=== PATIENT | male | born 1945 | race Two or more races ===

== ENCOUNTER 2025-09-09 15:51 | Emergency (ER) | payer OTHER ==
[~2025-09-09] VITALS: Ht 175.3 cm; Wt 95.4 kg
--- NOTE | 2025-09-09 16:22 | ED.PDOC ---
HPI Comments HPI: Eduin 79 y.o male presents to the ED via EMS for a chief complaint of generalized weakness x 3 days. Patient was seen at a [facility] a couple days ago for flu like symptoms such as a cough, was given antibiotics and discharged. Patient had a f/u appointment with PCP today, had a 12 lead reading AFIB with BP in the 90's systolic. Clinic gave 1 liter IV fluids which brought BP up to 120's systolic per EMS. Patient felt lethargic and lightheaded when getting himself up and going inside the clinic today. He states inability to do anything as it increases weakness. He denies hx of AFIB Initial Vitals BP: HR: RR: O2 Sat: Temp: Past Medical history: HTN, HLD Past Surgical history: BL knee replacement Medications: Hydrochlorothiazide Social History: Denies smoking, ETOH, and drug use. Allergies: Lisinopril `` HPI: Poor Historian. bugay: Weakness, slow AFib, 2/4 bilateral pitting edema. REVIEW OF SYSTEMS: CONSTITUTIONAL: Denies acute: fever, diaphoresis, chills, HEAD: Denies acute: headache, photophobia Eyes: Denies acute: Double vision, vision loss, eye pain, eye discharge. EARS: Denies acute: tinnitus, hearing loss, ear discharge, ear pain, THROAT: Denies acute: sore throat, swelling, difficulty swallowing , pain with swallowing, change in voice. NECK: Denies acute: neck pain, neck swelling, stiff neck. HEART: Denies acute : chest pain, palpitations, LUNGS: Denies acute: wheezing, cough, hemoptysis ABDOMEN: Denies acute: abdominal pain, Nausea, Vomiting, diarrhea, melena , hematemesis, hematochezia SKIN: Denies acute: rash, redness, lesions, itchiness. EXTREMITIES: Denies acute: calf pain, numbness, tingling, weakness, denies pain in extremity. Denies acute: Low back pain. Neuro: Denies acute: focal neurological deficit, motor or sensory focal neurological deficit, tremors, seizure like activity, confusion, change in mental status, loss of bowel or bladder function, cauda equina like symptoms. : Denies acute: dysuria, hematuria, flank pain, increase in urinary frequency. PSYCH: Denies acute: hallucination, suicidal ideation, homicidal ideation. PHYSICAL EXAM: General: ---mild-----acute distress, awake and alert. Head: normocephalic, atraumatic. No raccoon's eyes, no powell sign. Neck: supple, trachea is midline, no swelling. Throat: Normal phonation. Eyes:, no erythema, no purulent discharge, no proptosis, no icterus. Heart: Irregular bradycardia in the setting of atrial fibrillation no signif icant murmur appreciated. Lungs: no apparent respiratory distress, Able to speak in full sentences. No wheezing, no rhonchi, no crackles. No stridors Clear to auscultation bilaterally. Abdomen: non tender to palpation, non distended, soft, no guarding, no rebound, + bowel sounds. Neuro: Awake, Alert, oriented to name, self, situation, follows commands GCS=15. Speech is normal. Skin: no petechia, no purpura, no cyanosis, slightly-pale, not jaundice. Lower extremities: --2/4 bilateral - Pitting edema no deformity, no focal swelling, no calf TTP. Makes eye contact. moves all four extremities. Face: no apparent facial droop. ED COURSE: DISCLAIMER: This medical document was created using an electronic medical record system with voice recognition software and computerized dictation system. Although this document has been carefully reviewed, there might still be some phonetic and typographical errors. Occasional wrong-word or "sound-alike" substitutions may have occurred due to the inherent limitations of voice recognition software. These areas are purely typographical due to imperfections of the software programs and do not reflect any compromise in the patient's medical care. Please read the chart carefully and recognize, using context, where these substitutions have occurred. 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 Was a procedure done?: No CP Differential Dx Differential Diagnosis: A-fib, Digoxin Toxicity, Electrolyte Disorder, PA Comment As far as generalized weakness Includes but not limited to thyroid disease, encephalopathy, electrolyte abnormality, sepsis, infection, intracranial pathology, drug adverse effects, arrhythmia, kidney insufficiency, ACS, CVA, malignancy, anemia X-Ray, Labs, Meds, VS Vital Signs Date Time Temp Pulse Resp B/P (MAP) Pulse Ox O2 Delivery O2 Flow Rate FiO2 09/10/25 00:57 98.0 43 14 109/79 (89) 95 98.0 09/10/25 00:00 45 17 132/69 (90) 95 09/09/25 22:00 46 17 135/65 (88) 98 09/09/25 20:59 129/79 09/09/25 20:00 43 09/09/25 19:58 46 17 95 Room Air* 0 21 09/09/25 19:30 98.0 46 17 122/71 (88) 95 98.0 09/09/25 17:29 42 17 98 Room Air* 0 21 09/09/25 17:29 97.9 42 17 122/69 (86) 98 97.9 09/09/25 16:07 46 09/09/25 16:05 97.9 38 16 130/75 98 97.9 Lab Test 09/09/25 23:25 09/09/25 20:45 09/09/25 19:01 09/09/25 17:56 Range/Units Urine Color Light-yellow Yellow Urine Clarity Clear Clear Urine pH 6.5 5.0-9.0 Urine Specific [place] 1.009 1.001-1.035 Urine Protein Negative Negative Urine Ketones Negative Negative Urine Blood Negative Negative /uL Urine Nitrite Negative Negative Urine Bilirubin Negative Negative Urine Urobilinogen Normal Negative mg/dL Urine Leukocyte Esterase Negative Negative /uL Urine RBC 1 0 - 3 /hpf Urine Microscopic WBC 1 0-3 /HPF Urine Squamous Epithelial Cells Few <5 /hpf Urine Bacteria None seen None Seen /hpf Urine Glucose Normal Normal mg/dL Troponin I High Sensitivity 70 *H 62 *H 64 *H </=54 ng/L White Blood Count 4.2 L 4.4-10.8 10^3/uL Red Blood Count 3.39 L 4.5-5.90 10^6/uL Hemoglobin 10.3 L 13.5-17.5 g/dL Hematocrit 30.8 L 41.0-53.0 % Mean Corpuscular Volume 90.8 80.0-100.0 fL Mean Corpuscular Hemoglobin 30.5 28.0-32.0 pg Mean Corpuscular Hemoglobin Concent 33.6 32.0-36.0 g/dL Red Cell Distribution Width 15.2 H 11.8-14.3 % Platelet Count 191 140-450 10^3/uL Mean Platelet Volume 8.2 6.9-10.8 fL Neutrophils (%) (Auto) 62.3 37.0-80.0 % Lymphocytes (%) (Auto) 19.6 10.0-50.0 % Monocytes (%) (Auto) 15.5 H 0.0-12.0 % Eosinophils (%) (Auto) 1.9 0.0-7.0 % Basophils (%) (Auto) 0.7 0.0-2.0 % Neutrophils # (Auto) 2.6 1.6-8.6 10 ^3/uL Lymphocytes # (Auto) 0.8 0.4-5.4 10 ^3/uL Monocytes # (Auto) 0.6 0-1.3 10 ^3/uL Eosinophils # (Auto) 0.1 0-0.8 10 ^3/uL Basophils # (Auto) 0 0-0.2 10 ^3/uL Nucleated Red Blood Cells 0.1 % Sodium Level 127 L 136-145 mmol/L Potassium Level 3.3 L 3.5-5.1 mmol/L Chloride Level 91 L 98-107 mmol/L Carbon Dioxide Level 30 20-31 mmol/L Anion Gap 6 5-15 Blood Urea Nitrogen 13 9-23 mg/dL Creatinine 0.95 0.700-1.30 mg/dL Glomerular Filtration Rate Calc 80 >90 mL/min BUN/Creatinine Ratio 13.7 10.0-20.0 Serum Glucose 108 H 74-106 mg/dL Lactic Acid Level 0.9 0.4-2.0 mmol/L Calcium Level 8.3 L 8.7-10.4 mg/dL Magnesium Level 1.8 1.6-2.6 mg/dL Total Bilirubin 0.9 0.2-1.0 mg/dL Aspartate Amino Transferase (AST) 40 13-40 U/L Alanine Aminotransferase (ALT) 54 H 7-40 U/L Alkaline Phosphatase 88 46-116 U/L B-Type Natriuretic Peptide 746.66 0-100 pg/mL Total Protein 6.7 5.7-8.2 g/dL Albumin 3.7 3.2-4.8 g/dL Test 09/09/25 17:18 Range/Units Urine Color Yellow Yellow Urine Clarity Clear Clear Urine pH 6.5 5.0-9.0 Urine Specific [place] 1.015 1.001-1.035 Urine Protein 1+ H Negative Urine Ketones Negative Negative Urine Blood Negative Negative /uL Urine Nitrite Negative Negative Urine Bilirubin Negative Negative Urine Urobilinogen Normal Negative mg/dL Urine Leukocyte Esterase Negative Negative /uL Urine RBC <1 0 - 3 /hpf Urine Microscopic WBC 2 0-3 /HPF Urine Squamous Epithelial Cells None seen <5 /hpf Urine Bacteria None seen None Seen /hpf Urine Glucose Normal Normal mg/dL [place] [id number] Ph: [phone] DIAGNOSTIC IMAGING Diagnostic Imaging Report : [id number] Signed PATIENT: GILBERT MCNEILL ACCT: [id number] UNIT: [id number] : 1945 LOC: ER ROOM / BED: / AGE / SEX: 79 / M ADM STATUS: REG ER SERVICE 14 ORDERING PHYSICIAN: GULSHAN GAUTHIER DO PROCEDURE(s): CXRP - CHEST PORTABLE REASON: weakness/cp ORDER NUMBER(s): [id number], ACCESSION NUMBER(s): [id number] INDICATION: weakness/cp TECHNIQUE: Frontal view of the chest. COMPARISON: None FINDINGS/IMPRESSION: Prominence of the interstitial markings. Enlarged cardiomediastinal silhouette. No pleural effusion or pneumothorax. No acute osseous abnormality. ATED BY: KELTON PAREDES MD DICTATED DATE/TIME: 09/09/251656 SIGNED BY: KELTON PAREDES MD SIGNED DATE/TIME: 09/09/251656 CC: Time of 1ST Reevaluation: 16:17 Reevaluation 1ST: Unchanged Time of 2ND Reevaluation: 22:06 (The case was discussed with the [place] [facility] admitting team (HPI, physical exam, labs and diagnostic tests that were available at the time of disposition, ED course, treatment plan) on the phone. They agreed to transfer the patient to their service by ALS for further evaluation and treatment. Dr. loredo. Authorization number is--[id number]) Patient Education/Counseling: Diagnosis, Treatment Family Education/Counseling: No Family Present Comments MDM: patient presented with the above HPI.--cardiac----workup was initiated. patient was found with the above mentioned diagnosis. the following medications were ordered: please refer to order lists of meds and tests obtained by myself Dr. Gauthier. Patient ED course and VS have been stabilized. Patient has been reassessed in the ED and remained in a stable condition. Pertinent incidental findings were discussed with the patient and/or family. Patient/family voices understanding and is agreeable with plan. Patient has been observed in the ED adequate length of time to insure improvement/stability. Escalation of care considered: Consideration of escalation to observation or admission Patient was ADMITTED to the medicine team for further evaluation and treatment of their presentation. All the reports of any imaging studies that were ordered by myself were reviewed by myself. Departure 1 Departure Time of Disposition: 19:54 Impression: Primary Impression: Symptomatic bradycardia Additional Impressions: Atrial fibrillation Elevated troponin Hyponatremia Anemia Elevated brain natriuretic peptide (BNP) level Disposition: ADMITTED INPATIENT Admit to: Tele Condition: Guarded Discharged With: Self Critical Care Note Critical Care Time?: Yes (45 min-critical care time only) Critical care comment: Due to a high probability of clinically significant, life threatening deterioration, the patient required my highest level of preparedness to intervene emergently and I personally spent this critical care time directly and personally managing the patient. This critical care time included obtaining a history; examining the patient; pulse oximetry; ordering and review of studies; arranging urgent treatment with development of a management plan; evaluation of patient's response to treatment; frequent reassessment; and, discussions with other providers. This critical care time was performed to assess and manage the high probability of imminent, life-threatening deterioration that could result in multi-organ failure. It was exclusive of separately billable procedures and treating other patients and teaching time. Please see my other sections and the rest of the note for further information on patient assessment and treatment. Heart Score Heart Score: Heart Score Response (Comments) Value History Moderate Suspicious 1 EKG Normal 0 Age >65 2 Risk Factors 1 or 2 risk factors 1 Troponin 1-2 x's Normal limit 1 Total 5 I personally scribed for GULSHAN GAUTHIER DO ([facility]) on 09/09/25 at 16:22. Electronically submitted by Rosenda Pena ([facility]). I personally scribed for GULSHAN GAUTHIER DO ([facility]) on 09/09/25 at 20:19. Electronically submitted by Rosenda Pena ([facility]). GULSHAN GAUTHIER DO Sep 09, 2025 16:22
--- NOTE | 2025-09-09 17:00 | DVH ---
INDICATION: weakness/cp TECHNIQUE: Frontal view of the chest. COMPARISON: None FINDINGS/IMPRESSION: Prominence of the interstitial markings. Enlarged cardiomediastinal silhouette. No pleural effusion or pneumothorax. No acute osseous abnormality.
[2025-09-09 17:29] VITALS: PULSE 42; RESP 17; O2SAT 98
[2025-09-09 17:33] LABS: Urine Protein, UAD 1+ (Negative)
[2025-09-09 18:08] LABS: Hematocrit 30.8 % (41.0-53.0); Hemoglobin 10.3 g/dL (13.5-17.5); Mean Corpuscular Hemoglobin 30.5 pg (28.0-32.0); Mean Corpuscular Volume 90.8 fL (80.0-100.0); Nucleated Red Blood Cells % 0.1 %
[2025-09-09 18:23] LABS: Alanine Aminotransferase 54 U/L (7-40); Albumin 3.7 g/dL (3.2-4.8); Alkaline Phosphatase 88 U/L (46-116); Anion Gap 6 (5-15); BUN/Creatinine Ratio 13.7 (10.0-20.0); Bilirubin, Total 0.9 mg/dL (0.2-1.0); Blood Urea Nitrogen 13 mg/dL (9-23); Calcium 8.3 mg/dL (8.7-10.4); Carbon Dioxide 30 mmol/L (20-31); Chloride 91 mmol/L (98-107); Glucose 108 mg/dL (74-106); Magnesium 1.8 mg/dL (1.6-2.6); Potassium 3.3 mmol/L (3.5-5.1); Sodium 127 mmol/L (136-145); Total Protein 6.7 g/dL (5.7-8.2)
[2025-09-09 19:58] VITALS: PULSE 46; RESP 17; O2SAT 95
[2025-09-09] MEDS: FUROSEMIDE 40 MG/4 ML VIAL IV ONE (20:59)
[2025-09-09 23:34] LABS: Urine Protein, UAD Negative (Negative)
[2025-09-10 00:57] VITALS: BP 109/79; PULSE 43; RESP 14; TEMP 98; O2SAT 95
--- NOTE | 2025-09-14 12:26 | ECG ---
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
== END 2025-09-10 01:15 | disposition short-term general hospital (02) ==
LOC: EDBD 15:51 → ER 15:51
DX: R00.1 Bradycardia, unspecified (principal); D64.9 Anemia, unspecified; I48.91 Unspecified atrial fibrillation; E87.1 Hypo-osmolality and hyponatremia; E78.5 Hyperlipidemia, unspecified; I10 Essential (primary) hypertension; Z79.899 Other long term (current) drug therapy
CPT/HCPCS: 36415; 71045; 80053; 81001; 83605; 83735; 83880; 84484; 85025; 93005; 96374; 99291; J1938